=== PATIENT | female | born 1990 | race Two or more races ===

== ENCOUNTER 2017-05-27 10:50 | Outpatient (CLI) ==
[2014-05-23 19:39] VITALS: BMI 20.3
== END 2017-05-27 10:51 | disposition home or self-care (01) ==
LOC: RHC-LAB 10:50
PROVIDERS: ATTEND Nurse Practitioner Family
DX: F41.8 Other specified anxiety disorders (principal)
CPT/HCPCS: 36415; 80053; 80061; 84443; 85025

== ENCOUNTER 2017-11-25 13:46 | Outpatient (CLI) ==
[2014-05-23 19:39] VITALS: BMI 20.3
== END 2017-11-25 13:47 | disposition home or self-care (01) ==
LOC: RHC-LAB 13:46
PROVIDERS: ATTEND Nurse Practitioner Family
DX: R53.83 Other fatigue (principal); F41.9 Anxiety disorder, unspecified; E78.5 Hyperlipidemia, unspecified
CPT/HCPCS: 36415; 80053; 80061; 84443; 85025